=== PATIENT | female | born 1990 | race Caucasian/White ===

== ENCOUNTER 2019-06-16 06:35 | Emergency (ER) | payer MEDICAID, OTHER ==
[~2019-06-16] VITALS: Ht 160 cm; Wt 97.0 kg
[2019-06-16] MEDS ORDERED: IBUPROFEN 800MG TABLET PO ONE (07:45)
[2019-06-16 08:49] VITALS: BP 122/78
== END 2019-06-16 08:50 | disposition home or self-care (01) ==
LOC: ER 07:02
DX: M25.531 Pain in right wrist (principal); F12.10 Cannabis abuse, uncomplicated; Z98.890 Other specified postprocedural states; Z97.5 Presence of (intrauterine) contraceptive device; Z87.828 Personal history of other (healed) physical injury and trauma
CPT/HCPCS: 73110; 81025; 99283

== ENCOUNTER 2022-01-23 05:41 | Emergency (ER) | payer SELFPAY ==
[~2022-01-23] VITALS: Ht 162.6 cm; Wt 88.0 kg
[2022-01-23] MEDS ORDERED: ACETAMINOPHEN 325MG TABLET PO ONE (06:30)
[2022-01-23] MEDS ORDERED: TOPUD PO (07:41)
[2022-01-23 08:00] VITALS: BP 110/66
== END 2022-01-23 09:15 | disposition home or self-care (01) ==
LOC: ER 05:41
DX: S09.8XXA Other specified injuries of head, initial encounter (principal); F12.10 Cannabis abuse, uncomplicated; Z98.890 Other specified postprocedural states; Z97.5 Presence of (intrauterine) contraceptive device; V43.52XA Car driver injured in collision with other type car in traffic accident, initial encounter; Y93.89 Activity, other specified; Y92.488 Other paved roadways as the place of occurrence of the external cause
CPT/HCPCS: 73502; 81025; 99284

== ENCOUNTER 2024-01-02 08:49 | Emergency (ER) | payer MEDICAID ==
[~2024-01-02] VITALS: Ht 160 cm; Wt 97.5 kg
[~2024-01-02 08:49] MED LIST: TOPUD PO
[2024-01-02 09:00] VITALS: O2SAT 97
[2024-01-02 09:27] LABS: BASOPHILS % 0.6 % (0.0-2.0); EOSINOPHILS % 2.6 % (0.0-5.0); HEMATOCRIT. 40.8 % (36.0-48.0); HEMOGLOBIN. 13.7 g/dL (12.0-16.0); LYMPHOCYTES % 40.4 % (20.0-50.0); MEAN CORPUSCULAR HEMOGLOBIN 28.2 pg (28.0-32.0); MEAN CORPUSCULAR HGB CONC 33.5 g/dL (31.0-37.0); MEAN PLATELET VOLUME 7.7 fl (7.4-10.4); MONOCYTES % 7.7 % (2.0-8.0); NEUTROPHILS % 48.7 % (40.0-76.0); PLATELET 368 x1000/uL (130-400); RED BLOOD CELL COUNT 4.86 mill/uL (4.2-5.4); RED CELL DISTRIBUTION WIDTH 14.4 % (11.6-14.6); WHITE BLOOD COUNT 7.3 x1000/uL (4.5-11.0)
[2024-01-02 09:55] LABS: ALANINE AMINOTRANSFERASE 15 IU/L (10-49); ALBUMIN 4.5 g/dL (3.2-4.8); ASPARTATE AMINOTRANSFERASE 19 IU/L (<34); BILIRUBIN TOTAL 1.1 mg/dL (0.1-1.0); CALCIUM 9.1 mg/dL (8.7-10.4); CARBON DIOXIDE 26 mEq/L (21-32); CHLORIDE 107 mEq/L (98-107); CREATININE 0.6 mg/dL (0.6-1.0); GLUCOSE 103 mg/dL (70-105); POTASSIUM 4.1 mEq/L (3.5-5.1); PROTEIN TOTAL 7.5 g/dL (6.0-8.3); SODIUM 138 mEq/L (136-145); UREA NITROGEN BLOOD 8 mg/dL (9-23)
[2024-01-02 11:11] LABS: CLARITY URINE TURBID (CLEAR); COLOR URINE BLOODY (YELLOW); SPECIFIC GRAVITY URINE >1.030 (1.005-1.030)
[2024-01-02 11:12] LABS: GLUCOSE URINE NEGATIVE (NEGATIVE); KETONES URINE NEGATIVE (NEGATIVE); LEUKOCYTE ESTERASE URINE TRACE (NEGATIVE); NITRITE URINE NEGATIVE (NEGATIVE); OCCULT BLOOD URINE 3+ (NEGATIVE); PROTEIN URINE 2+ (NEGATIVE); UROBILINOGEN URINE 0.2 E.U./dL (0.2-1.0)
[2024-01-02] MEDS ORDERED: IBUP-1523 MT (11:46)
[2024-01-02] MEDS ORDERED: PROG100C10 MT (11:46)
[2024-01-02] MEDS ORDERED: TOPUD MT (11:46)
[2024-01-02 11:48] LABS: RBC URINE TNTC /hpf (0-2); SQUAMOUS EPITHELIAL CELL URINE 1+ /lpf (RARE/1+)
[2024-01-02 11:50] LABS: BACTERIA URINE NONE SEEN
[2024-01-02 12:25] VITALS: BP 130/80; PULSE 71; RESP 18; TEMP 97.9
== END 2024-01-02 12:26 | disposition home or self-care (01) ==
LOC: ER 09:08
DX: N92.0 Excessive and frequent menstruation with regular cycle (principal); F12.10 Cannabis abuse, uncomplicated
CPT/HCPCS: 36415; 80053; 81003; 81025; 85025; 86850; 86900; 99283

== ENCOUNTER 2025-07-28 13:12 | Emergency (ER) | payer SELFPAY ==
[~2025-07-28] VITALS: Ht 160 cm; Wt 98.0 kg
[~2025-07-28 13:12] MED LIST changes: +IBUP-1523 MT; +PROG100C10 MT; +TOPUD MT
[2025-07-28 13:24] VITALS: TEMP 36.9; O2SAT 100
[2025-07-28 15:28] VITALS: BP 118/77; PULSE 85; RESP 12; O2SAT 98
== END 2025-07-28 15:38 | disposition home or self-care (01) ==
LOC: ER 13:12
DX: F41.1 Generalized anxiety disorder (principal); R06.02 Shortness of breath; F12.90 Cannabis use, unspecified, uncomplicated; Z79.899 Other long term (current) drug therapy
CPT/HCPCS: 71045; 93005; 99283